=== PATIENT | female | born 1990 | race African-American/Black ===

== ENCOUNTER 2018-05-01 01:21 | Emergency (ER) | payer OTHER ==
[~2018-05-01] VITALS: Ht 167.6 cm; Wt 72.6 kg
--- NOTE | ~2018-05-01 | EKG ---
[address] [employer] [place] [address] ELECTROCARDIOGRAM REPORT Name: JACKGARFIELD Room #: [facility]#: [id number] Admission: 05/01/18 Attend Phys: Discharge: 05/01/18 Date of : 89 Report #: [id number] THIS REPORT FOR: //name// [facility] ED Test Date: 2018-05-01 Test Time: 01:41:03 Pat Name: GARFIELD SANTIAGO Department: Room: Gender: F Sales Development Specialist: [facility] : 1990 Requested By: Sophia Banerjee Order Number: [id number] MD: Yony Goyal Measurements Intervals Evant Rate: 84 P: 38 DC: 171 QRS: 9 QRSD: 96 T: 26 QT: 377 QTc: 446 Interpretive Statements Sinus rhythm Normal tracing No previous ECG available for comparison Electronically Signed On 05-01-2018 8:37:54 [employer]UOUS [employer]PER[employer] HELPER by Yony Goyal [email or web address] <ELECTRONICALLY SIGNED> By: Yony Goyal MD, [facility] 05/01/18 [id number] Yony Goyal MD, FACC /EPI
[~2018-05-01 01:21] MED LIST: APAP500; CLARITIN10 MG PO; IBUPROFEN 800800 M1; LANOLIN56 GM; PRENATAL MULTI1 EAC2
[2018-05-01 02:06] LABS: ABSOLUTE NEUTROPHILS 6.4 thou/uL (1.4-8.2); BASOPHILS 0.1 % (0.0-2.0); EOSINOPHILS 2.7 % (0.0-3.0); HEMATOCRIT 40.5 % (37.0-47.0); HEMOGLOBIN 13.3 gm/dL (12.0-15.0); MCH 31.6 pg (26.0-34.0); MCHC 32.9 g/dL (28.0-37.0); MCV 96.1 fL (80.0-100.0); MONOCYTES 5.5 % (1.0-8.0); PLATELET COUNT 189 thou/uL (150-400); POLYS 86.7 % (36.0-66.0); RBC 4.22 mil/uL (4.20-5.00); WBC 7.4 thou/uL (4.0-11.0)
[2018-05-01 02:12] LABS: ANION GAP 6 mmol/L (7-16); BUN 17 mg/dL (7-18); CALCIUM 8.9 mg/dL (8.5-10.1); CHLORIDE 104 mmol/L (98-107); CO2 25 mmol/L (21-32); CREATININE 0.9 mg/dL (0.6-1.0); GLUCOSE 102 mg/dL (74-106); POTASSIUM 3.5 mmol/L (3.5-5.1); SODIUM 135 mmol/L (136-145)
[2018-05-01 02:21] LABS: TROPONIN-I <0.06 ng/mL (<0.06)
[2018-05-01] MEDS ORDERED: REGLAN 5 MG TAB5 MG PO (03:29)
[2018-05-01 03:46] VITALS: BP 126/84
== END 2018-05-01 03:20 | disposition home or self-care (01) ==
LOC: ER 01:21
PROVIDERS: Emergency Medicine
DX: K21.9 Gastro-esophageal reflux disease without esophagitis (principal)

== ENCOUNTER 2018-05-16 21:27 | Emergency (ER) | payer OTHER ==
[~2018-05-16] VITALS: Ht 167.6 cm; Wt 72.6 kg
[~2018-05-16 21:27] MED LIST changes: +REGLAN 5 MG TAB5 MG PO
[2018-05-16 22:04] LABS: URINE CLARITY SLIGHTLY CLOUDY; URINE COLOR YELLOW
[2018-05-16 22:05] LABS: URINE BILIRUBIN NEGATIVE (Negative); URINE BLOOD NEGATIVE (Negative); URINE GLUCOSE-RANDOM* NEGATIVE (Negative); URINE KETONES NEGATIVE (Negative); URINE LEUKOCYTES-REFLEX TRACE (Negative); URINE NITRITE-REFLEX NEGATIVE (Negative); URINE PROTEIN (DIPSTICK) NEGATIVE (Negative); URINE UROBILINOGEN 0.2 E.U./dl (0.2-1.0)
[2018-05-16] MEDS ORDERED: PHENAZOPYRIDIN200 M2 PO (22:48)
[2018-05-16] MEDS ORDERED: MACROBID 100 M100 M1 PO (22:48)
[2018-05-16 22:57] VITALS: BP 123/87
== END 2018-05-16 22:58 | disposition home or self-care (01) ==
LOC: ER 21:27
PROVIDERS: Physician Assistant
DX: N39.0 Urinary tract infection, site not specified (principal)